=== PATIENT | female | born 1965 | race Caucasian/White ===

== ENCOUNTER 2021-04-06 09:59 | Inpatient (IN) ==
[2021-04-06 10:28] LABS: Hematocrit 36.3 % (35.3-44.9); Hemoglobin 11.2 g/dL (11.5-15.4); Mean Corpuscular HGB Conc 30.9 g/dL (31.6-35.5); Mean Corpuscular Hemoglobin 27.9 pg (28.0-33.3); Mean Corpuscular Volume 90.5 fL (83.0-100.0); Mean Platelet Volume 10.4 fL (9.4-12.4); Platelet Count 228 K/mcL (140-400); Red Blood Count 4.01 M/mcL (3.82-4.97); Red Cell Distribution Width 12.9 % (11.5-14.5); Segmented Neutrophils % 57.3 %; White Blood Count 7.6 K/mcL (4.3-11.1)
[2021-04-06 10:29] LABS: Basophils # 0.1 K/mcL (0.0-0.2); Basophils % 0.7 %; Eosinophils # 0.3 K/mcL (0.0-0.6); Eosinophils % 3.4 %; Immature Granulocytes % 1.1 % (0-4); Lymphocytes # 2.3 K/mcL (0.6-4.6); Lymphocytes % 30.3 %; Monocytes # 0.5 K/mcL (0.0-1.3); Monocytes % 7.2 %; Neutrophils # 4.3 K/mcL (1.6-8.9)
[2021-04-06 11:26] LABS: BUN/Creatinine Ratio 15 (6-26); Blood Urea Nitrogen 15 mg/dL (6-20); Calcium 8.8 mg/dL (8.6-10.3); Carbon Dioxide 27 mEq/L (23-29); Chloride 108 mEq/L (98-107); Glucose 99 mg/dL (70-105); Osmolality,Calculated 291 (280-300); Potassium 4.3 mEq/L (3.5-5.1); Sodium 140 mEq/L (136-145); Troponin I 0.05 ng/mL (< 0.04); eGFR For African Americans > 60 (> 60); eGFR For Non-African Americans 58 (> 60)
[2021-04-06] MEDS ORDERED: Aspirin 81 MG TAB.CHEW PO ONE (11:35)
[2021-04-06] MEDS ORDERED: Ketorolac 15 MG/ML VIAL IVP ONE (11:35)
[2021-04-06] MEDS ORDERED: *HR* Heparin 5,000 UNIT/ML VIAL IVP ONE (11:35)
[2021-04-06] MEDS ORDERED: *HR* Heparin 5,000 UNIT/ML VIAL IVP PRN ×2 (11:35)
[2021-04-06] MEDS ORDERED: Nitroglycerin 0.4 MG TAB.SUBL SL PRN (11:36)
[2021-04-06] MEDS ORDERED: Ondansetron 4 MG/2 ML VIAL IVP PRN (12:05)
[2021-04-06] MEDS ORDERED: Naloxone 0.4 MG/ML INJ IVP PRN (12:05)
[2021-04-06] MEDS ORDERED: Perflutren Lipid Microsphere 1.3 ML in 0.9 % Sodium Chloride 8.7 ML IVP PRN (12:16)
[2021-04-06 12:20] LABS: Hematocrit 36.5 % (35.3-44.9); Hemoglobin 11.3 g/dL (11.5-15.4); Mean Corpuscular Volume 90.6 fL (83.0-100.0); Mean Platelet Volume 10.3 fL (9.4-12.4); Platelet Count 221 K/mcL (140-400); Red Blood Count 4.03 M/mcL (3.82-4.97); Red Cell Distribution Width 12.9 % (11.5-14.5); White Blood Count 6.7 K/mcL (4.3-11.1)
[2021-04-06] MEDS: Heparin 25,000UNIT/250ML 1/2NS 25,000 UNIT/250 ML IV.SOLN IVC SCH (12:33)
[2021-04-06 12:34] LABS: INR 0.9; Prothrombin Time 10.1 Seconds (9.4-12.1)
[2021-04-06 12:36] LABS: Heparin anti-factor XA UFH < 0.04 IU/mL (0.30-0.70)
[2021-04-06] MEDS ORDERED: *HR* Labetalol 20 MG/4 ML SYRINGE IVP ONE ×3 (16:23→20:53)
[2021-04-06] MEDS: Acetaminophen 325 MG TABLET PO PRN (16:46)
[2021-04-06] MEDS: Budesonide/Formoterol 160/4.5 1 PUFF INH IH SCH (20:05)
[2021-04-06] MEDS: traZODone 50 MG TABLET PO SCH (20:56)
[2021-04-06] MEDS ORDERED: lamoTRIgine 100 MG TABLET PO SCH (21:00)
[2021-04-06] MEDS: *HR* Labetalol 20 MG/4 ML SYRINGE IVP ONE ×2 (21:00→22:16)
[2021-04-06] MEDS: tiZANidine 4 MG TABLET PO PRN (22:09)
[2021-04-06] MEDS ORDERED: Prochlorperazine 10 MG/2 ML VIAL IVP PRN (22:20)
[2021-04-06] MEDS ORDERED: Ketorolac 30 MG/ML VIAL IVP ONE (22:20)
[2021-04-07 02:28] LABS: Basophils # 0.1 K/mcL (0.0-0.2); Basophils % 0.5 %; Eosinophils # 0.3 K/mcL (0.0-0.6); Eosinophils % 2.5 %; Hematocrit 33.9 % (35.3-44.9); Immature Granulocytes % 0.9 % (0-4); Lymphocytes # 3.5 K/mcL (0.6-4.6); Lymphocytes % 30.4 %; Mean Corpuscular HGB Conc 32.4 g/dL (31.6-35.5); Mean Corpuscular Hemoglobin 28.8 pg (28.0-33.3); Mean Corpuscular Volume 88.7 fL (83.0-100.0); Mean Platelet Volume 10.4 fL (9.4-12.4); Monocytes # 0.6 K/mcL (0.0-1.3); Monocytes % 5.4 %; Platelet Count 227 K/mcL (140-400); Red Blood Count 3.82 M/mcL (3.82-4.97); Segmented Neutrophils % 60.3 %
[2021-04-07 02:36] LABS: White Blood Count 11.6 K/mcL (4.3-11.1)
[2021-04-07 02:45] LABS: BUN/Creatinine Ratio 15 (6-26); Blood Urea Nitrogen 15 mg/dL (6-20); Calcium 8.9 mg/dL (8.6-10.3); Carbon Dioxide 24 mEq/L (23-29); Chloride 109 mEq/L (98-107); Chol/HDL Ratio 4.4 (0-4.9); Cholesterol 207 mg/dL (< 200); Glucose 98 mg/dL (70-105); HDL Cholesterol 47 mg/dL (40-59); LDL Cholesterol,Calculated 119 mg/dL (< 100); Osmolality,Calculated 291 (280-300); Potassium 4.3 mEq/L (3.5-5.1); Sodium 140 mEq/L (136-145); Triglycerides 206 mg/dL (< 150); eGFR For African Americans > 60 (> 60); eGFR For Non-African Americans 59 (> 60)
[2021-04-07] MEDS: Aspirin 81 MG TAB.CHEW PO SCH (07:39)
[2021-04-07] MEDS: Budesonide/Formoterol 160/4.5 1 PUFF INH IH SCH ×2 (08:04→20:28)
[2021-04-07] MEDS: carvediloL 6.25 MG TABLET PO SCH ×2 (09:02→17:47)
[2021-04-07] MEDS: Acetaminophen 325 MG TABLET PO PRN (17:50)
[2021-04-07] MEDS ORDERED: Ketorolac 30 MG/ML VIAL IVP ONE (20:20)
[2021-04-07] MEDS: traZODone 50 MG TABLET PO SCH (20:20)
[2021-04-07] MEDS ORDERED: Prochlorperazine 10 MG/2 ML VIAL IVP PRN (20:20)
[2021-04-07] MEDS: tiZANidine 4 MG TABLET PO PRN (20:20)
[2021-04-08] MEDS: Heparin 25,000UNIT/250ML 1/2NS 25,000 UNIT/250 ML IV.SOLN IVC SCH ×2 (00:31→20:07)
[2021-04-08 05:15] LABS: INR 0.9; Prothrombin Time 10.1 Seconds (9.4-12.1)
[2021-04-08 05:37] LABS: Troponin I 0.05 ng/mL (< 0.04)
[2021-04-08 06:02] LABS: Calcium 8.7 mg/dL (8.6-10.3)
[2021-04-08] MEDS: Budesonide/Formoterol 160/4.5 1 PUFF INH IH SCH ×2 (07:37→20:02)
[2021-04-08] MEDS: Aspirin 81 MG TAB.CHEW PO SCH (09:29)
[2021-04-08] MEDS: Acetaminophen 325 MG TABLET PO PRN ×2 (09:29→20:56)
[2021-04-08] MEDS: carvediloL 6.25 MG TABLET PO SCH ×2 (09:29→17:10)
[2021-04-08] MEDS: lamoTRIgine 100 MG TABLET PO SCH ×2 (09:29→20:20)
[2021-04-08] MEDS ORDERED: Prochlorperazine 10 MG/2 ML VIAL IVP ONE (10:17)
[2021-04-08] MEDS ORDERED: Metoclopramide 10 MG/2 ML VIAL IVP ONE (10:17)
[2021-04-08] MEDS ORDERED: Ketorolac 30 MG/ML VIAL IVP ONE (10:17)
[2021-04-08] MEDS: hydroCHLOROthiazide 25 MG TABLET PO SCH (12:01)
[2021-04-08] MEDS: traZODone 50 MG TABLET PO SCH (20:21)
[2021-04-08] MEDS: tiZANidine 4 MG TABLET PO PRN (20:56)
[2021-04-09 01:44] LABS: Hematocrit 31.7 % (35.3-44.9); Hemoglobin 10.2 g/dL (11.5-15.4); Mean Corpuscular HGB Conc 32.2 g/dL (31.6-35.5); Mean Corpuscular Hemoglobin 28.8 pg (28.0-33.3); Mean Corpuscular Volume 89.5 fL (83.0-100.0); Mean Platelet Volume 10.2 fL (9.4-12.4); Platelet Count 203 K/mcL (140-400); Red Blood Count 3.54 M/mcL (3.82-4.97); Red Cell Distribution Width 13.1 % (11.5-14.5); White Blood Count 9.3 K/mcL (4.3-11.1)
[2021-04-09 02:03] LABS: Calcium 8.4 mg/dL (8.6-10.3); Potassium 3.8 mEq/L (3.5-5.1)
[2021-04-09] MEDS: Heparin 25,000UNIT/250ML 1/2NS 25,000 UNIT/250 ML IV.SOLN IVC SCH (03:15)
[2021-04-09] MEDS: Budesonide/Formoterol 160/4.5 1 PUFF INH IH SCH ×2 (07:30→20:13)
[2021-04-09] MEDS: Acetaminophen 325 MG TABLET PO PRN ×2 (08:38→18:53)
[2021-04-09] MEDS: hydroCHLOROthiazide 25 MG TABLET PO SCH (08:39)
[2021-04-09] MEDS: Aspirin 81 MG TAB.CHEW PO SCH (08:39)
[2021-04-09] MEDS: lamoTRIgine 100 MG TABLET PO SCH ×2 (08:39→20:50)
[2021-04-09] MEDS: tiZANidine 4 MG TABLET PO PRN ×2 (08:39→18:52)
[2021-04-09] MEDS: carvediloL 6.25 MG TABLET PO SCH ×2 (08:39→16:00)
[2021-04-09] MEDS ORDERED: *HR* Midazolam HCl 2 MG/2 ML VIAL ONE (10:28)
[2021-04-09] MEDS ORDERED: *HR* FentaNYL (PF) 100 MCG/2 ML VIAL ONE (10:28)
[2021-04-09] MEDS ORDERED: *HR* Heparin 10,000 UNIT/10 ML VIAL ONE (10:29)
[2021-04-09] MEDS ORDERED: Nitroglycerin 1,000 MCG/5 ML VIAL IV ONE (10:29)
[2021-04-09] MEDS ORDERED: Heparin 1,000 UNITS/500 mL 500 ML ONE (10:29)
[2021-04-09] MEDS ORDERED: 0.9 % Sodium Chloride 1,000 ML ONE (10:29)
[2021-04-09] MEDS ORDERED: ISOVUE-370 200 ML INFUS..BTL ONE (10:29)
[2021-04-09] MEDS: 0.9 % Sodium Chloride 1,000 ML IVC SCH (12:07)
[2021-04-09] MEDS ORDERED: Metoclopramide 10 MG/2 ML VIAL IVP ONE (14:32)
[2021-04-09 17:54] LABS: Chol/HDL Ratio 3.6 (0-4.9); Estimated Average Glucose 108 mg/dl; Hemoglobin A1C 5.4 %
[2021-04-09] MEDS: traZODone 50 MG TABLET PO SCH (20:47)
[2021-04-10 03:12] LABS: Hematocrit 33.4 % (35.3-44.9); Hemoglobin 10.8 g/dL (11.5-15.4); Mean Corpuscular HGB Conc 32.3 g/dL (31.6-35.5); Mean Corpuscular Volume 89.5 fL (83.0-100.0); Mean Platelet Volume 10.9 fL (9.4-12.4); Platelet Count 220 K/mcL (140-400); Red Blood Count 3.73 M/mcL (3.82-4.97); Red Cell Distribution Width 13.3 % (11.5-14.5); White Blood Count 8.1 K/mcL (4.3-11.1)
[2021-04-10 03:33] LABS: BUN/Creatinine Ratio 14 (6-26); Blood Urea Nitrogen 14 mg/dL (6-20); Calcium 8.9 mg/dL (8.6-10.3); Carbon Dioxide 25 mEq/L (23-29); Chloride 108 mEq/L (98-107); Glucose 95 mg/dL (70-105); Osmolality,Calculated 292 (280-300); Potassium 3.8 mEq/L (3.5-5.1); Sodium 141 mEq/L (136-145); eGFR For African Americans > 60 (> 60); eGFR For Non-African Americans 56 (> 60)
[2021-04-10] MEDS: tiZANidine 4 MG TABLET PO PRN ×2 (04:26→16:18)
[2021-04-10] MEDS: Budesonide/Formoterol 160/4.5 1 PUFF INH IH SCH (07:38)
[2021-04-10] MEDS ORDERED: amLODIPine 5 MG TABLET PO SCH (09:00)
[2021-04-10] MEDS: carvediloL 6.25 MG TABLET PO SCH ×2 (09:07→16:07)
[2021-04-10] MEDS: Aspirin 81 MG TAB.CHEW PO SCH (09:07)
[2021-04-10] MEDS: lamoTRIgine 100 MG TABLET PO SCH ×2 (09:07→20:49)
[2021-04-10] MEDS: hydroCHLOROthiazide 25 MG TABLET PO SCH (09:07)
[2021-04-10] MEDS: Acetaminophen 325 MG TABLET PO PRN (16:06)
[2021-04-10] MEDS: 0.9 % Sodium Chloride 1,000 ML IVC SCH (16:07)
[2021-04-10] MEDS: traZODone 50 MG TABLET PO SCH (20:50)
[2021-04-10] MEDS ORDERED: *HR* Heparin 5,000 UNIT/ML VIAL SQ ONE (21:00)
[2021-04-10] MEDS ORDERED: Chlorhexidine Rinse 15 ML MOUTHWASH MM SCH (21:00)
[2021-04-11] MEDS: 0.9 % Sodium Chloride 1,000 ML IVC SCH (04:42)
[2021-04-11 05:59] LABS: Hematocrit 33.6 % (35.3-44.9); Hemoglobin 10.3 g/dL (11.5-15.4); Mean Corpuscular HGB Conc 30.7 g/dL (31.6-35.5); Mean Corpuscular Hemoglobin 27.8 pg (28.0-33.3); Mean Corpuscular Volume 90.8 fL (83.0-100.0); Mean Platelet Volume 10.2 fL (9.4-12.4); Platelet Count 222 K/mcL (140-400); Red Cell Distribution Width 13.5 % (11.5-14.5); White Blood Count 7.7 K/mcL (4.3-11.1)
[2021-04-11] MEDS ORDERED: carvediloL 6.25 MG TABLET PO ONE (06:00)
[2021-04-11] MEDS ORDERED: Aspirin 81 MG TAB.CHEW PO ONE (06:00)
[2021-04-11] MEDS ORDERED: *HR* LORazepam 2 MG/ML VIAL IVP ONE (06:11)
[2021-04-11 06:17] LABS: BUN/Creatinine Ratio 11 (6-26); Blood Urea Nitrogen 11 mg/dL (6-20); Calcium 9.3 mg/dL (8.6-10.3); Carbon Dioxide 28 mEq/L (23-29); Chloride 107 mEq/L (98-107); Glucose 99 mg/dL (70-105); Magnesium 1.9 mg/dL (1.6-2.6); Osmolality,Calculated 289 (280-300); Potassium 4.2 mEq/L (3.5-5.1); Sodium 140 mEq/L (136-145); eGFR For African Americans > 60 (> 60); eGFR For Non-African Americans 56 (> 60)
[2021-04-11] MEDS ORDERED: NiCARdipine 2.5 MG/10 ML Syringe IVPB ONE (06:36)
[2021-04-11] MEDS ORDERED: *HR* Midazolam HCl 5 MG/5 ML VIAL IVP ONE (06:39)
[2021-04-11] MEDS ORDERED: *HR* FentaNYL (PF) 1,000 MCG/20 ML VIAL ONE (06:40)
[2021-04-11] MEDS ORDERED: *HR* Rocuronium Bromide 50 MG/5 ML VIAL ONE (06:42)
[2021-04-11] MEDS ORDERED: Famotidine 20 MG/2 ML VIAL ONE (06:43)
[2021-04-11] MEDS ORDERED: *HR* Etomidate 20 MG/10 ML AMPUL IVP ONE (06:43)
[2021-04-11] MEDS ORDERED: Calcium Gluconate 1,000 MG/10 ML VIAL ONE (06:45)
[2021-04-11] MEDS ORDERED: Protamine Sulfate 250 MG/25 ML VIAL IVP ONE (06:45)
[2021-04-11] MEDS ORDERED: Tranexamic Acid 1,000 MG/10 ML VIAL ONE ×2 (06:45→09:36)
[2021-04-11] MEDS ORDERED: Clindamycin 900 MG/50 ML 900 MG/50 ML IV.SOLN IVPB ONE (07:00)
[2021-04-11] MEDS ORDERED: Dextrose 50 % in Water (Vial) 30 ML, Sodium Bicarbonate 20 MEQ, Potassium Chloride 15 M... TH ONE (07:45)
[2021-04-11] MEDS ORDERED: Dextrose 50 % in Water (Vial) 30 ML, Sodium Bicarbonate 20 MEQ, Lidocaine 1% 5 ML, Insu... TH ONE ×3 (07:45)
[2021-04-11] MEDS ORDERED: Heparin 15,000 UNIT in 0.9 % Sodium Chloride 500 ML IV ONE (07:45)
[2021-04-11] MEDS ORDERED: Norepinephrine 4 MG in 0.9 % Sodium Chloride 250 ML IVC PRN (07:45)
[2021-04-11 08:01] LABS: ABG Base Excess -2 mEq/L (-2 to 3); ABG Chloride 110 mEq/L (98-107); ABG Glucose 110 mg/dL (60-95); ABG HCO3 23 mEq/L (21-27); ABG Ionized Calcium 1.12 mmol/L (1.15-1.35); ABG Oxygen Saturation 89 % (95-98); ABG PCO2 38 mmHg (35-45); ABG PH 7.39 pH Units (7.32-7.45); ABG PO2 56 mmHg (85-104); ABG TCO2 24 mEq/L (20-26)
[2021-04-11 09:17] LABS: ABG Base Excess -1 mEq/L (-2 to 3); ABG Chloride 107 mEq/L (98-107); ABG Glucose 130 mg/dL (60-95); ABG HCO3 24 mEq/L (21-27); ABG Ionized Calcium 1.21 mmol/L (1.15-1.35); ABG Oxygen Saturation 100 % (95-98); ABG PCO2 40 mmHg (35-45); ABG PH 7.39 pH Units (7.32-7.45); ABG PO2 190 mmHg (85-104); ABG TCO2 25 mEq/L (20-26)
[2021-04-11] MEDS ORDERED: Albumin Human 5% 12.5 GM/250 ML IV.SOLN ONE ×3 (09:17→11:07)
[2021-04-11] MEDS ORDERED: niCARdipine 20 MG/200 ML MLS IVC ONE (09:18)
[2021-04-11 10:00] LABS: ABG Base Excess -2 mEq/L (-2 to 3); ABG Chloride 100 mEq/L (98-107); ABG Glucose 177 mg/dL (60-95); ABG HCO3 23 mEq/L (21-27); ABG Ionized Calcium 0.94 mmol/L (1.15-1.35); ABG Oxygen Saturation 100 % (95-98); ABG PCO2 36 mmHg (35-45); ABG PH 7.41 pH Units (7.32-7.45); ABG PO2 562 mmHg (85-104); ABG TCO2 24 mEq/L (20-26)
[2021-04-11 10:37] LABS: ABG Base Excess 0 mEq/L (-2 to 3); ABG Chloride 102 mEq/L (98-107); ABG Glucose 126 mg/dL (60-95); ABG HCO3 25 mEq/L (21-27); ABG Ionized Calcium 1.04 mmol/L (1.15-1.35); ABG Oxygen Saturation 100 % (95-98); ABG PCO2 46 mmHg (35-45); ABG PH 7.36 pH Units (7.32-7.45); ABG PO2 556 mmHg (85-104); ABG TCO2 27 mEq/L (20-26)
[2021-04-11 10:48] LABS: ABG Base Excess -1 mEq/L (-2 to 3); ABG Chloride 102 mEq/L (98-107); ABG Glucose 91 mg/dL (60-95); ABG HCO3 25 mEq/L (21-27); ABG Oxygen Saturation 100 % (95-98); ABG PCO2 51 mmHg (35-45); ABG PH 7.31 pH Units (7.32-7.45); ABG PO2 510 mmHg (85-104); ABG TCO2 27 mEq/L (20-26)
[2021-04-11] MEDS ORDERED: *HR* Dextrose 50 % in Water (Syg) 50 ML SYRINGE IVP PRN (11:24)
[2021-04-11] MEDS ORDERED: Insulin Regular, Human 100 UNIT/ML IV PRN (11:24)
[2021-04-11] MEDS ORDERED: Potassium Chloride 40 MEQ/200 ML BAG IVPB PRN (11:24)
[2021-04-11 11:25] LABS: ABG Base Excess -2 mEq/L (-2 to 3); ABG Chloride 104 mEq/L (98-107); ABG Glucose 45 mg/dL (60-95); ABG HCO3 23 mEq/L (21-27); ABG Ionized Calcium 1.36 mmol/L (1.15-1.35); ABG Oxygen Saturation 99 % (95-98); ABG PCO2 41 mmHg (35-45); ABG PH 7.36 pH Units (7.32-7.45); ABG PO2 142 mmHg (85-104); ABG TCO2 24 mEq/L (20-26)
[2021-04-11] MEDS ORDERED: Acetaminophen 650 MG RECTAL SUPP RC PRN (11:28)
[2021-04-11] MEDS ORDERED: Naloxone 0.4 MG/ML INJ IVP PRN (11:28)
[2021-04-11] MEDS ORDERED: Calcium Gluconate 1gm/50mL 1 GM/50 ML BAG IVPB PRN (11:29)
[2021-04-11] MEDS ORDERED: Albumin Human 5% 12.5 GM/250 ML IV.SOLN IVPB PRN (11:29)
[2021-04-11] MEDS ORDERED: Mannitol 20% 100 GM/500 ML IV.SOLN IVC ONE (11:50)
[2021-04-11] MEDS ORDERED: *HR* Heparin 10,000 UNIT/10 ML VIAL IR ONE (11:50)
[2021-04-11] MEDS ORDERED: *HR* Magnesium Sulfate 2 GM/50 ML PIGGYBACK IVPB ONE (11:50)
[2021-04-11] MEDS ORDERED: Lidocaine 2% Syringe 100 MG/5 ML IVP ONE (11:50)
[2021-04-11] MEDS ORDERED: *HR* Phenylephrine 10 MG/ML VIAL IVC ONE (11:50)
[2021-04-11] MEDS ORDERED: Albumin Human 25% 25 GM/100 ML IV.SOLN IVPB ONE (11:50)
[2021-04-11] MEDS: niCARdipine 20 MG/200 ML MLS IVC SCH ×4 (12:05→20:11)
[2021-04-11 12:30] LABS: Basophils % 0.4 %; Monocytes % 1.6 %
[2021-04-11 12:30] LABS: ABG Base Excess -2 mEq/L (-2 to 3); ABG HCO3 25 mEq/L (21-27); ABG Oxygen Saturation 100 % (95-98); ABG PCO2 50 mmHg (35-45); ABG PO2 331 mmHg (85-104); ABG TCO2 26 mEq/L (20-26); Blood Gas VT 420 cc
[2021-04-11 12:32] LABS: Eosinophils # 0.1 K/mcL (0.0-0.6); Eosinophils % 1.3 %; Hematocrit 31.7 % (35.3-44.9); Immature Granulocytes % 1.6 % (0-4); Immature Platelets 3.5 % (1.1-6.1); Lymphocytes # 1.6 K/mcL (0.6-4.6); Lymphocytes % 19.5 %; Mean Corpuscular HGB Conc 31.5 g/dL (31.6-35.5); Mean Corpuscular Hemoglobin 28.2 pg (28.0-33.3); Mean Corpuscular Volume 89.5 fL (83.0-100.0); Mean Platelet Volume 10.1 fL (9.4-12.4); Monocytes # 0.1 K/mcL (0.0-1.3); Neutrophils # 6.1 K/mcL (1.6-8.9); Platelet Count 94 K/mcL (140-400); Red Blood Count 3.54 M/mcL (3.82-4.97); Red Cell Distribution Width 13.2 % (11.5-14.5); Segmented Neutrophils % 75.6 %
[2021-04-11] MEDS: lamoTRIgine 100 MG TABLET PO SCH ×2 (12:42→19:42)
[2021-04-11 12:43] LABS: INR 1.3; Prothrombin Time 14.7 Seconds (9.4-12.1)
[2021-04-11] MEDS: 0.9 % Sodium Chloride w KCl 20 MEQ/1,000 ML MLS IVC SCH (12:43)
[2021-04-11] MEDS: Metoclopramide 10 MG/2 ML VIAL IVP SCH ×3 (12:44→23:59)
[2021-04-11 12:46] LABS: Activated Partial Thrombo Time 29.9 Seconds (26.0-36.0)
[2021-04-11] MEDS: Pantoprazole 40 MG VIAL IVP SCH (12:46)
[2021-04-11 13:04] LABS: BUN/Creatinine Ratio 11 (6-26); Blood Urea Nitrogen 9 mg/dL (6-20); Calcium 8.7 mg/dL (8.6-10.3); Carbon Dioxide 25 mEq/L (23-29); Chloride 108 mEq/L (98-107); Glucose 121 mg/dL (70-105); Magnesium 2.5 mg/dL (1.6-2.6); Osmolality,Calculated 288 (280-300); Potassium 3.8 mEq/L (3.5-5.1); Sodium 139 mEq/L (136-145); eGFR For African Americans > 60 (> 60); eGFR For Non-African Americans > 60 (> 60)
[2021-04-11] MEDS: Clindamycin 900 MG/50 ML 900 MG/50 ML IV.SOLN IVPB SCH ×2 (16:02→23:59)
[2021-04-11 16:26] LABS: ABG Base Excess -2 mEq/L (-2 to 3); ABG HCO3 24 mEq/L (21-27); ABG Oxygen Saturation 87 % (95-98); ABG PCO2 48 mmHg (35-45); ABG PH 7.31 pH Units (7.32-7.45); ABG PO2 58 mmHg (85-104); ABG TCO2 26 mEq/L (20-26); Blood Gas VT 420 cc
[2021-04-11] MEDS: *HR* FentaNYL (PF) 100 MCG/2 ML VIAL IVP PRN ×2 (17:37→19:12)
[2021-04-11] MEDS: *HR* OxyCODONE/APAP 5/325 TABLET PO PRN ×2 (17:37→21:58)
[2021-04-11] MEDS: Norepinephrine 4 MG/254 ML IV.SOLN IVC SCH ×2 (19:12→19:16)
[2021-04-11] MEDS: traZODone 50 MG TABLET PO SCH (19:43)
[2021-04-11 20:26] LABS: ABG Base Excess -3 mEq/L (-2 to 3); ABG HCO3 24 mEq/L (21-27); ABG Oxygen Saturation 89 % (95-98); ABG PCO2 47 mmHg (35-45); ABG PH 7.31 pH Units (7.32-7.45); ABG PO2 62 mmHg (85-104); ABG TCO2 25 mEq/L (20-26); Blood Gas Modality CPAP/PS; Blood Gas Pressure Support 5 cm H2O
[2021-04-11] MEDS: Chlorhexidine Rinse 15 ML MOUTHWASH MM SCH (20:39)
[2021-04-11 23:07] LABS: ABG Base Excess -2 mEq/L (-2 to 3); ABG HCO3 24 mEq/L (21-27); ABG Oxygen Saturation 96 % (95-98); ABG PCO2 47 mmHg (35-45); ABG PH 7.32 pH Units (7.32-7.45); ABG PO2 91 mmHg (85-104); ABG TCO2 26 mEq/L (20-26); Blood Gas Modality 4LPM
[2021-04-12] MEDS: niCARdipine 20 MG/200 ML MLS IVC SCH ×3 (02:01→06:55)
[2021-04-12] MEDS: Norepinephrine 4 MG/254 ML IV.SOLN IVC SCH (02:02)
[2021-04-12] MEDS: *HR* OxyCODONE/APAP 5/325 TABLET PO PRN ×4 (03:12→20:34)
[2021-04-12 03:36] LABS: INR 1.2; Prothrombin Time 13.4 Seconds (9.4-12.1)
[2021-04-12 03:39] LABS: Activated Partial Thrombo Time 29.7 Seconds (26.0-36.0)
[2021-04-12 03:45] LABS: BUN/Creatinine Ratio 13 (6-26); Blood Urea Nitrogen 11 mg/dL (6-20); Calcium 8.1 mg/dL (8.6-10.3); Carbon Dioxide 26 mEq/L (23-29); Chloride 106 mEq/L (98-107); Glucose 116 mg/dL (70-105); Magnesium 1.8 mg/dL (1.6-2.6); Osmolality,Calculated 284 (280-300); Potassium 4.8 mEq/L (3.5-5.1); Sodium 137 mEq/L (136-145); eGFR For African Americans > 60 (> 60); eGFR For Non-African Americans > 60 (> 60)
[2021-04-12 04:08] LABS: Basophils % 0.3 %; Eosinophils # 0.1 K/mcL (0.0-0.6); Hematocrit 34.1 % (35.3-44.9); Hemoglobin 10.6 g/dL (11.5-15.4); Immature Granulocytes % 0.8 % (0-4); Lymphocytes # 0.9 K/mcL (0.6-4.6); Mean Corpuscular HGB Conc 31.1 g/dL (31.6-35.5); Mean Corpuscular Volume 90.2 fL (83.0-100.0); Mean Platelet Volume 10.7 fL (9.4-12.4); Monocytes # 0.9 K/mcL (0.0-1.3); Monocytes % 8.3 %; Neutrophils # 8.4 K/mcL (1.6-8.9); Platelet Count 116 K/mcL (140-400); Red Blood Count 3.78 M/mcL (3.82-4.97); Red Cell Distribution Width 13.7 % (11.5-14.5); Segmented Neutrophils % 80.6 %; White Blood Count 10.5 K/mcL (4.3-11.1)
[2021-04-12] MEDS: *HR* FentaNYL (PF) 100 MCG/2 ML VIAL IVP PRN (04:12)
[2021-04-12] MEDS: Metoclopramide 10 MG/2 ML VIAL IVP SCH ×4 (05:08→23:47)
[2021-04-12] MEDS: 0.9 % Sodium Chloride w KCl 20 MEQ/1,000 ML MLS IVC SCH (08:09)
[2021-04-12] MEDS: Chlorhexidine Rinse 15 ML MOUTHWASH MM SCH ×3 (08:09→20:33)
[2021-04-12] MEDS: Pantoprazole 40 MG VIAL IVP SCH ×2 (08:09→08:41)
[2021-04-12] MEDS: lamoTRIgine 100 MG TABLET PO SCH ×3 (08:09→20:34)
[2021-04-12] MEDS ORDERED: tiZANidine 4 MG TABLET PO PRN (08:26)
[2021-04-12] MEDS ORDERED: D5% in Water 1,000 ML IVC PRN (08:26)
[2021-04-12] MEDS ORDERED: *HR* Dextrose 50 % in Water (Syg) 50 ML SYRINGE IVP PRN (08:26)
[2021-04-12] MEDS ORDERED: Dextrose Gel 15 GM/37.5 ML TUBE PO PRN ×2 (08:26)
[2021-04-12] MEDS ORDERED: Nitroglycerin 0.4 MG TAB.SUBL SL PRN (08:26)
[2021-04-12] MEDS ORDERED: Naloxone 0.4 MG/ML INJ IVP PRN (08:26)
[2021-04-12] MEDS ORDERED: Acetaminophen 325 MG TABLET PO PRN (08:26)
[2021-04-12] MEDS ORDERED: Ondansetron 4 MG/2 ML VIAL IVP PRN (08:26)
[2021-04-12] MEDS ORDERED: Insulin Regular, Human 100 UNIT/ML IV PRN (08:26)
[2021-04-12] MEDS ORDERED: carvediloL 6.25 MG TABLET PO SCH (08:30)
[2021-04-12] MEDS: Aspirin Enteric Coated 81 MG Tablet PO SCH (08:42)
[2021-04-12] MEDS ORDERED: Aspirin Enteric Coated 81 MG Tablet PO SCH (09:00)
[2021-04-12] MEDS ORDERED: *HR* FentaNYL (PF) 100 MCG/2 ML VIAL IVP PRN (11:28)
[2021-04-12] MEDS: Insulin LISPRO 300 UNITS/3 ML VIAL SUBQ SCH ×3 (12:17→20:32)
[2021-04-12] MEDS: Albumin Human 5% 12.5 GM/250 ML IV.SOLN IVPB PRN ×2 (13:45→14:23)
[2021-04-12] MEDS: carvediloL 6.25 MG TABLET PO SCH (17:16)
[2021-04-12] MEDS: *HR* Heparin 5,000 UNIT/ML VIAL SQ SCH (17:21)
[2021-04-12] MEDS: traZODone 50 MG TABLET PO SCH (20:33)
[2021-04-13] MEDS: *HR* OxyCODONE/APAP 5/325 TABLET PO PRN ×5 (00:34→20:16)
[2021-04-13] MEDS: Metoclopramide 10 MG/2 ML VIAL IVP SCH ×3 (04:45→17:42)
[2021-04-13 04:58] LABS: BUN/Creatinine Ratio 13 (6-26); Blood Urea Nitrogen 10 mg/dL (6-20); Calcium 8.6 mg/dL (8.6-10.3); Carbon Dioxide 25 mEq/L (23-29); Chloride 105 mEq/L (98-107); Glucose 106 mg/dL (70-105); Osmolality,Calculated 283 (280-300); Potassium 4.1 mEq/L (3.5-5.1); Sodium 137 mEq/L (136-145); eGFR For African Americans > 60 (> 60); eGFR For Non-African Americans > 60 (> 60)
[2021-04-13] MEDS: *HR* Heparin 5,000 UNIT/ML VIAL SQ SCH ×2 (05:04→17:42)
[2021-04-13] MEDS: lamoTRIgine 100 MG TABLET PO SCH ×2 (07:46→20:16)
[2021-04-13] MEDS: Pantoprazole 40 MG VIAL IVP SCH (07:46)
[2021-04-13] MEDS: Aspirin Enteric Coated 81 MG Tablet PO SCH (07:46)
[2021-04-13] MEDS: carvediloL 6.25 MG TABLET PO SCH ×2 (07:46→17:42)
[2021-04-13] MEDS: Chlorhexidine Rinse 15 ML MOUTHWASH MM SCH ×2 (07:46→20:15)
[2021-04-13] MEDS: Insulin LISPRO 300 UNITS/3 ML VIAL SUBQ SCH ×4 (08:03→20:15)
[2021-04-13] MEDS ORDERED: amLODIPine 5 MG TABLET PO SCH ×2 (09:00)
[2021-04-13] MEDS: traZODone 50 MG TABLET PO SCH (20:16)
[2021-04-14] MEDS: Metoclopramide 10 MG/2 ML VIAL IVP SCH ×3 (00:36→11:24)
[2021-04-14] MEDS: *HR* OxyCODONE/APAP 5/325 TABLET PO PRN ×6 (00:36→23:24)
[2021-04-14] MEDS: *HR* Heparin 5,000 UNIT/ML VIAL SQ SCH ×2 (05:50→17:05)
[2021-04-14] MEDS: Aspirin Enteric Coated 81 MG Tablet PO SCH (07:38)
[2021-04-14] MEDS: Pantoprazole 40 MG VIAL IVP SCH (07:38)
[2021-04-14] MEDS: Chlorhexidine Rinse 15 ML MOUTHWASH MM SCH ×2 (07:38→20:43)
[2021-04-14] MEDS: lamoTRIgine 100 MG TABLET PO SCH ×2 (07:38→20:43)
[2021-04-14] MEDS: Insulin LISPRO 300 UNITS/3 ML VIAL SUBQ SCH ×2 (07:39→11:23)
[2021-04-14] MEDS: carvediloL 6.25 MG TABLET PO SCH ×2 (07:39→16:57)
[2021-04-14] MEDS: traZODone 50 MG TABLET PO SCH (20:43)
[2021-04-15] MEDS: *HR* OxyCODONE/APAP 5/325 TABLET PO PRN ×2 (02:27→08:08)
[2021-04-15 02:37] LABS: Basophils % 0.4 %; Eosinophils # 0.4 K/mcL (0.0-0.6); Eosinophils % 4.8 %; Hematocrit 26.2 % (35.3-44.9); Immature Granulocytes % 0.7 % (0-4); Lymphocytes # 1.2 K/mcL (0.6-4.6); Lymphocytes % 16.9 %; Mean Corpuscular HGB Conc 32.4 g/dL (31.6-35.5); Mean Corpuscular Hemoglobin 29.2 pg (28.0-33.3); Mean Platelet Volume 10.7 fL (9.4-12.4); Monocytes # 0.6 K/mcL (0.0-1.3); Monocytes % 8.4 %; Platelet Count 199 K/mcL (140-400); Red Blood Count 2.91 M/mcL (3.82-4.97); Red Cell Distribution Width 13.3 % (11.5-14.5); Segmented Neutrophils % 68.8 %; White Blood Count 7.2 K/mcL (4.3-11.1)
[2021-04-15 03:02] LABS: BUN/Creatinine Ratio 13 (6-26); Blood Urea Nitrogen 10 mg/dL (6-20); Calcium 8.8 mg/dL (8.6-10.3); Carbon Dioxide 29 mEq/L (23-29); Chloride 100 mEq/L (98-107); Glucose 133 mg/dL (70-105); Magnesium 1.9 mg/dL (1.6-2.6); Osmolality,Calculated 283 (280-300); Potassium 3.5 mEq/L (3.5-5.1); Sodium 136 mEq/L (136-145); eGFR For African Americans > 60 (> 60); eGFR For Non-African Americans > 60 (> 60)
[2021-04-15 03:19] LABS: Hemoglobin 8.5 g/dL (11.5-15.4)
[2021-04-15 04:04] VITALS: O2SAT 97
[2021-04-15] MEDS: carvediloL 6.25 MG TABLET PO SCH (08:05)
[2021-04-15] MEDS: Pantoprazole 40 MG VIAL IVP SCH (08:05)
[2021-04-15] MEDS: lamoTRIgine 100 MG TABLET PO SCH (08:05)
[2021-04-15] MEDS: Aspirin Enteric Coated 81 MG Tablet PO SCH (08:05)
[2021-04-15] MEDS: Chlorhexidine Rinse 15 ML MOUTHWASH MM SCH (08:06)
[2021-04-15 11:15] VITALS: BP 124/82; PULSE 79; TEMP 97.7
[2021-04-16] MEDS ORDERED: hydroCHLOROthiazide 25 MG TABLET PO SCH ×2 (10:30)
== END 2021-04-15 14:29 | disposition home or self-care (01) | DRG 234 ==
LOC: EMEROOARM 09:59 → 2ANU 09:59 → SUATTDRO 12:03 → 2ANU 12:56 → ICNU 04-10 19:35 → 2NNU 04-12 09:30
PROVIDERS: ADMIT Family Medicine; ATTEND Internal Medicine